=== PATIENT | female | born 1985 | race American Indian/Alaskan Native ===

== ENCOUNTER 2019-12-20 06:24 | Outpatient (CLI) | payer MEDICAID ==
--- NOTE | 2019-12-20 08:00 | Ultrasound Report ---
ULTRASOUND PELVIC LIMITED HISTORY: well being, rule out demise TECHNIQUE: Transabdominal ultrasound imaging COMPARISON: None. FINDINGS: The uterus is anteverted and enlarged measuring 14.3 x 5.4 x 5.8 cm. There appears to be an ill-defin ed fibroid in the anterior fundus measuring 6.8 x 6.3 x 6.0 cm. The endometrial stripe measures 6 mm on transabdominal imaging. No intrauterine is demonstr ated. The ovaries are obscured. No pelvic fluid collection. IMPRESSION: Enlarged uterus. Large fundal fibroid. No intrauterine is demonstrated. Signer Name: Kwesi Plaza Jr, MD Signed: 12/20/2019 7:55 AM Workstation Name: [id number]
== END 2019-12-20 07:55 | disposition home or self-care (01) ==
LOC: TRG 06:24 → APU 06:34 → TRG 07:55
PROVIDERS: ATTEND Obstetrics & Gynecology
DX: N85.2 Hypertrophy of uterus (principal); D25.9 Leiomyoma of uterus, unspecified
CPT/HCPCS: 76857

== ENCOUNTER 2019-12-20 08:01 | Emergency (ER) | payer MEDICAID ==
[2019-12-20 08:09] VITALS: BP 130/60
[2019-12-20] MEDS ORDERED: KETOROLAC 60 MG/2 ML INJ IM ONE (10:19)
--- NOTE | 2019-12-20 10:24 | Emergency Department Report ---
ED Abdominal Pain HPI - General Chief Complaint: Abdominal Pain Stated Complaint: ABD/BACK PAIN Time Seen by Provider: 12/20/19 10:14 Source: patient Mode of arrival: Wheelchair Limitations: No Limitations - History of Present Illness Initial Comments: Patient is 34 years old nulliparous female with past medical history of asthma. Patient presented to the L&D first and she had an ultrasound done that showed a fibroid and patient then sent down to the ER for further management of her lower abdominal pain that has been going on for the last 5 days. Patient described her pain as crampy and associated with vaginal spotting. Patient denied any vaginal discharge. No fever or chills. Patient stated that her menstrual cycle is irregular and her last cycle was in June 2019. Patient denied any dizziness, chest pain, generalized weakness, nausea or vomiting. MD Complaint: abdominal pain - Related Data Allergies Allergy/AdvReac Type Severity Reaction Status Date / Time egg Allergy Anaphylaxis Verified 12/20/19 06:53 latex Allergy Hives Verified 12/20/19 06:53 Penicillins Allergy Anaphylaxis Verified 12/20/19 06:53 ED Review of Systems ROS: Stated complaint: ABD/BACK PAIN Other details as noted in HPI Comment: All other systems reviewed and negative Constitutional: denies: chills, fever Respiratory: denies: cough, shortness of breath, SOB with exertion Cardiovascular: denies: chest pain, palpitations Gastrointestinal: abdominal pain. denies: nausea, vomiting, diarrhea, constipation, hematemesis, melena, hematochezia Genitourinary: abnormal menses Musculoskeletal: denies: back pain Neurological: denies: headache, weakness, numbness, paresthesias, confusion, abnormal gait ED Past Medical Hx - Past Medical History Previous Medical History?: Yes Hx Asthma: Yes Hx COPD: Yes Additional medical history: anemia. panic/anxiety attacks - Surgical History Past Surgical History?: Yes Additional Surgical History: cyst removed from tailbone - Social History Smoking Status: Never Smoker Substance Use Type: None ED Physical Exam - General Limitations: No Limitations General appearance: alert, in no apparent distress - Head Head exam: Present: atraumatic, normocephalic, normal inspection - Eye Eye exam: Present: normal appearance, PERRL - ENT ENT exam: Present: normal exam, normal orophraynx, mucous membranes moist - Neck Neck exam: Present: normal inspection, full ROM. Absent: tenderness, men ingismus - Respiratory Respiratory exam: Present: normal lung sounds bilaterally - Cardiovascular Cardiovascular Exam: Present: regular rate, normal rhythm, normal heart sounds - GI/Abdominal GI/Abdominal exam: Present: soft, normal bowel sounds. Absent: distended, tenderness, guarding, rebound, rigid, organomegaly, mass, bruit, pulsatile mass, hernia - Extremities Exam Extremities exam: Present: normal inspection, full ROM, normal capillary refill. Absent: pedal edema, calf tenderness - Back Exam Back exam: Present: normal inspection, full ROM. Absent: CVA tenderness (R), CVA tenderness (L) - Neurological Exam Neurological exam: Present: alert, oriented X3, CN II-XII intact, normal gait, reflexes normal. Absent: motor sensory deficit - Skin Skin exam: Present: warm, intact, normal color ED Course Vital Signs 12/20/19 08:05 Temperature 98.0 F Pulse Rate 64 Respiratory 20 Rate Blood Pressure 130/60 O2 Sat by Pulse 100 Oximetry ED Medical Decision Making - Lab Data Result diagrams: 12/20/19 10:20 12/20/19 10:20 - Medical Decision Making Patient is 34 years old nulliparous female with past medical history of asthma. Patient presented to the L&D first and she had an ultrasound done that showed a fibroid and patient then sent down to the ER for further management of her lower abdominal pain that has been going on for the last 5 days. Patient described her pain as crampy and associated with vaginal spotting. Patient denied any vaginal discharge. No fever or chills. Patient stated that her menstrual cycle is irregular and her last cycle was in June 2019. Patient denied any dizziness, chest pain, generalized weakness, nausea or vomiting. Patient remained stable in the ER. Labs reviewed and is unremarkable except for hemoglobin of 8.4 most likely secondary to chronic blood loss as patient MCV is 60. Patient will be started on iron and given [facility] to follow-up for further management for her fibroid. Patient also advised to return to the ER if she develop any more bleeding or symptoms or started to have acute anemia symptoms like dizziness or shortness of breath or chest pain or excessive vaginal bleeding. Critical care attestation.: If time is entered above; I have spent that time in minutes in the direct care of this critically ill patient, excluding procedure time. ED Disposition Clinical Impression: Uterine fibroid, Abdominal pain Disposition: DC-01 TO HOME OR SELFCARE Is pt being admited?: No Condition: Stable Instructions: Uterine Fibroids (ED), Abdominal Pain (ED) Referrals: [facility] [Provider Group] - 3-5 Days
[2019-12-20 10:49] LABS: Bilirubin,Urine NEG (Negative); Blood,Urine LG (Negative); Color,Urine Straw (Yellow); Mucus,Urine FEW /HPF; Protein,Urine <15 mg/dL mg/dL (Negative); Urobilinogen,Urine < 2.0 mg/dL (<2.0)
[2019-12-20 10:55] LABS: Basophils # (Auto) 0.1 K/mm3 (0.0-0.1); Basophils % (Auto) 0.9 % (0.0-1.8); Eosinophils # (Auto) 0.1 K/mm3 (0.0-0.4); Eosinophils % (Auto) 0.7 % (0.0-4.3); Lymphocytes # (Auto) 3.4 K/mm3 (1.2-5.4); Lymphocytes % (Auto) 36.4 % (13.4-35.0); Mean Corpuscular HGB Conc 29 % (30-34); Monocytes # (Auto) 0.8 K/mm3 (0.0-0.8); Monocytes % (Auto) 8.3 % (0.0-7.3); Platelet Count 478 K/mm3 (140-440); Red Blood Count 4.73 M/mm3 (3.65-5.03)
[2019-12-20 10:58] LABS: Alanine Aminotransferase 11 units/L (7-56); Albumin 3.8 g/dL (3.9-5); BUN/Creatinine Ratio 10; Blood Urea Nitrogen 7 mg/dL (7-17); Calcium 9.6 mg/dL (8.4-10.2); Hematocrit 28.4 % (30.3-42.9); Hemoglobin 8.2 gm/dl (10.1-14.3); Hemolysis Index 0; Mean Corpuscular Volume 60 fl (79-97); Red Cell Distribution Width 23.8 % (13.2-15.2)
[2019-12-20] MEDS ORDERED: NAPROXEN 500 MG TAB PO ONE (11:00)
[2019-12-20 11:02] LABS: INR 1.03 (0.87-1.13)
[2019-12-20 11:03] LABS: Partial Thromboplastin Time 29.2 Sec. (24.2-36.6)
== END 2019-12-20 11:23 | disposition home or self-care (01) ==
LOC: ED 08:01
DX: D25.9 Leiomyoma of uterus, unspecified (principal); J44.9 Chronic obstructive pulmonary disease, unspecified; Z98.890 Other specified postprocedural states; Z91.012 Allergy to eggs; Z91.010 Allergy to peanuts; Z88.0 Allergy status to penicillin
CPT/HCPCS: 36415; 76857; 80053; 81001; 84703; 85025; 85610; 85730; 99283; J1885